=== PATIENT | female | born 1965 | race Caucasian/White ===

== ENCOUNTER 2017-08-03 11:48 | Emergency (ER) | payer OTHER ==
[~2017-08-03] VITALS: Ht 167.6 cm; Wt 72.7 kg
[2017-08-03 11:59] VITALS: BP 147/91
[2017-08-03 12:38] LABS: HEMATOCRIT 42.7 % (34.6-47.8); HEMOGLOBIN 14.4 g/dL (11.7-16.4); WHITE BLOOD COUNT 5.2 x10^3/uL (3.4-10)
[2017-08-03 12:51] LABS: BLOOD UREA NITROGEN 18 mg/dL (7-18)
== END 2017-08-03 14:37 | disposition home or self-care (01) ==
LOC: ED 14:31
DX: I87.2 Venous insufficiency (chronic) (peripheral) (principal); I10 Essential (primary) hypertension
CPT/HCPCS: 36415; 80048; 85025; 85610; 99285

== ENCOUNTER → 2018-07-01 | Outpatient (CLI) | payer OTHER | END | disposition home or self-care (01) | LOC: CFH 15:41 | PROVIDERS: ATTEND Nurse Practitioner | DX: E06.9 Thyroiditis, unspecified (principal); M25.511 Pain in right shoulder | CPT/HCPCS: 76536 ==

== ENCOUNTER 2019-03-07 09:43 | Inpatient (IN) | payer OTHER ==
[~2019-03-07] VITALS: Ht 165.1 cm; Wt 78.5 kg
[~2019-03-07 09:43] MED LIST: AMLO1CAP8 PO; AMOX1TAB64 PO
--- NOTE | 2019-03-07 10:17 | NUR ---
Assumed care of patient. C/O bilat lower ABD pain, worse on right, wrapping to lower back x 1 week. C/O occasional urinary incontinence and increased frequency. C/O N/V since yesterday. IV started, labs drawn, and UA sent to lab. at bedside. Placed on NIBP and pulse ox. Will continue to monitor.
[2019-03-07] MEDS ORDERED: ONDANSETRON 2MG/ML, 2ML ONE (10:24)
[2019-03-07] MEDS ORDERED: MORPHINE SULFATE 4 MG/ML, 1ML ONE (10:24)
[2019-03-07] MEDS ORDERED: ONDANSETRON 2MG/ML, 2ML IVPush ONE (10:30)
[2019-03-07] MEDS ORDERED: SODIUM CHLORIDE 0.9% 1,000ML IVBOLUS ONE (10:30)
[2019-03-07] MEDS ORDERED: MORPHINE SULFATE 4 MG/ML, 1ML IVPush PRN (10:30)
[2019-03-07] MEDS ORDERED: SODIUM CHLORIDE FLUSH 10ML SYR IVF ONE (10:30)
[2019-03-07 10:35] LABS: CULTURE INDICATED? YES; MICROSCOPIC INDICATED
[2019-03-07 11:02] LABS: BASOPHILS % (AUTO) 0 % (0-1); EOSINOPHILS # (AUTO) 0.03 x10^3/uL (0-0.4); EOSINOPHILS % (AUTO) 0 % (1-7); LYMPHOCYTES # (AUTO) 0.61 x10^3/uL (1-3.4); LYMPHOCYTES % (AUTO) 10 % (22-44); MD NO; MEAN CORPUSCULAR HEMOGLOBIN 29.8 pg (27.0-34.8); MEAN CORPUSCULAR HGB CONC 33.4 g/dL (32.4-35.8); MEAN CORPUSCULAR VOLUME 89.3 fL (80-100); MEAN PLATELET VOLUME 9.3 fL (7.4-10.4); MONOCYTES # (AUTO) 0.35 x10^3/uL (0.2-0.8); MONOCYTES % (AUTO) 5 % (2-9); NEUTROPHILS % (AUTO) 85 % (42-75); PLATELET COUNT 205 x10^3/uL (130-400); RED BLOOD COUNT 5.06 x10^6/uL (3.82-5.3); RED CELL DISTRIBUTION WIDTH 13.9 % (9.6-15.2)
[2019-03-07 11:11] LABS: ALBUMIN 4.1 g/dL (3.4-5.0); ANION GAP 8 mmol/L (5-15); CALCIUM 8.6 mg/dL (8.5-10.1); CHLORIDE 110 mmol/L (98-107)
--- NOTE | 2019-03-07 11:11 | NUR ---
Resting in [facility]. RR = 16.
[2019-03-07 11:14] LABS: ALANINE AMINOTRANSFERASE 24 U/L (12-78); ALKALINE PHOSPHATASE 50 U/L (45-117); BILIRUBIN,TOTAL 0.7 mg/dL (0.2-1.0); CREATININE 0.71 mg/dL (0.55-1.02); TOTAL PROTEIN 7.2 g/dL (6.4-8.2)
[2019-03-07] MEDS ORDERED: OMNIPAQUE 350 MG/ML, 100ML BOTTLE ONE (12:07)
--- NOTE | 2019-03-07 12:15 | NUR ---
Back from CT. No needs.
--- NOTE | 2019-03-07 13:38 | NUR ---
Provided with water for PO challenge.
--- NOTE | 2019-03-07 13:56 | NUR ---
Patient tolerating PO, but states that drinking water increases her ABD pain.
[2019-03-07] MEDS ORDERED: SODIUM CHLORIDE 0.9% 1,000 ML IV ONE (14:06)
[2019-03-07] MEDS ORDERED: SODIUM CHLORIDE FLUSH 10ML SYR IVF PRN (14:30)
--- NOTE | 2019-03-07 14:35 | NUR ---
Attempted report. RN unavailable.
--- NOTE | 2019-03-07 14:50 | NUR ---
Report to LEANDER Momin.
[2019-03-07] MEDS ORDERED: POLYETHYLENE GLYCOL 17 GM PACKET PO PRN (16:00)
[2019-03-07] MEDS ORDERED: ONDANSETRON 2MG/ML, 2ML IVPush PRN (16:00)
[2019-03-07] MEDS ORDERED: LABETALOL 5MG/ML, 20ML IVPush PRN (16:00)
[2019-03-07] MEDS ORDERED: ONDANSETRON ODT 4 MG PO PRN (16:00)
[2019-03-07 16:30] VITALS: BP 112/74
[2019-03-07 16:32] LABS: FREE T4 (FREE THYROXINE) 0.87 ng/dL (0.76-1.46)
[2019-03-07] MEDS: HEPARIN 5,000 UNITS/ML, 1ML SQ SCH (16:53)
[2019-03-07] MEDS ORDERED: MORPHINE SULFATE 4 MG/ML, 1ML IVPush ONE (17:00)
[2019-03-07] MEDS: SODIUM CHLORIDE 0.45% 1,000 ML IV SCH (17:23)
[2019-03-07] MEDS ORDERED: morphine SULFATE 10 MG/ML, 1ML IVPush PRN (19:30)
[2019-03-07] MEDS: CEFTRIAXONE PMX 1GM/50ML 50 ML IV SCH (19:42)
[2019-03-07 19:45] VITALS: BP 105/69
[2019-03-07] MEDS: METRONIDAZOLE PMX 500MG/100ML 100 ML IV SCH (20:55)
[2019-03-08 02:12] VITALS: BP 108/62
[2019-03-08] MEDS: SODIUM CHLORIDE 0.45% 1,000 ML IV SCH ×3 (02:36→21:13)
[2019-03-08 05:14] LABS: ALBUMIN 3.2 g/dL (3.4-5.0); ANION GAP 6 mmol/L (5-15); CALCIUM 7.8 mg/dL (8.5-10.1); CHLORIDE 114 mmol/L (98-107); MEAN CORPUSCULAR HEMOGLOBIN 30.7 pg (27.0-34.8); MEAN CORPUSCULAR HGB CONC 34.1 g/dL (32.4-35.8); MEAN PLATELET VOLUME 8.8 fL (7.4-10.4); PLATELET COUNT 152 x10^3/uL (130-400); RED BLOOD COUNT 4.14 x10^6/uL (3.82-5.3); RED CELL DISTRIBUTION WIDTH 14.3 % (9.6-15.2)
[2019-03-08] MEDS: METRONIDAZOLE PMX 500MG/100ML 100 ML IV SCH ×3 (05:17→21:13)
[2019-03-08 05:26] LABS: ALANINE AMINOTRANSFERASE 18 U/L (12-78); ALKALINE PHOSPHATASE 39 U/L (45-117); BILIRUBIN,TOTAL 0.6 mg/dL (0.2-1.0); CREATININE 0.48 mg/dL (0.55-1.02); TOTAL PROTEIN 5.6 g/dL (6.4-8.2)
[2019-03-08 05:54] LABS: BASOPHILS # (AUTO) 0.02 x10^3/uL (0-0.1); BASOPHILS % (AUTO) 1 % (0-1); EOSINOPHILS # (AUTO) 0.08 x10^3/uL (0-0.4); EOSINOPHILS % (AUTO) 3 % (1-7); LYMPHOCYTES # (AUTO) 0.95 x10^3/uL (1-3.4); LYMPHOCYTES % (AUTO) 34 % (22-44); MD SCAN; MONOCYTES # (AUTO) 0.31 x10^3/uL (0.2-0.8); MONOCYTES % (AUTO) 11 % (2-9); NEUTROPHILS # (AUTO) 1.41 x10^3/uL (1.8-6.8); NEUTROPHILS % (AUTO) 51 % (42-75)
[2019-03-08 07:05] VITALS: BP 102/68
[2019-03-08] MEDS: HEPARIN 5,000 UNITS/ML, 1ML SQ SCH ×3 (07:45→16:00)
[2019-03-08] MEDS: AMLODIPINE 5 MG TABLET PO SCH (07:50)
[2019-03-08] MEDS: SENNA/DOCUSATE TABLET PO SCH (07:50)
[2019-03-08] MEDS: BENAZEPRIL 10 MG TABLET PO SCH (07:50)
[2019-03-08 14:05] VITALS: BP 113/78
[2019-03-08 20:00] VITALS: BP 109/63
[2019-03-08] MEDS: CEFTRIAXONE PMX 1GM/50ML 50 ML IV SCH (20:00)
[2019-03-09 02:00] VITALS: BP 93/58
[2019-03-09] MEDS: METRONIDAZOLE PMX 500MG/100ML 100 ML IV SCH ×2 (04:56→13:00)
[2019-03-09 05:02] LABS: ALANINE AMINOTRANSFERASE 20 U/L (12-78); ALBUMIN 3.3 g/dL (3.4-5.0); ANION GAP 6 mmol/L (5-15); CALCIUM 8.1 mg/dL (8.5-10.1); CHLORIDE 113 mmol/L (98-107)
[2019-03-09 05:05] LABS: ALKALINE PHOSPHATASE 37 U/L (45-117); BILIRUBIN,TOTAL 0.2 mg/dL (0.2-1.0); CREATININE 0.54 mg/dL (0.55-1.02); TOTAL PROTEIN 5.7 g/dL (6.4-8.2)
[2019-03-09 05:12] LABS: BASOPHILS # (AUTO) 0.01 x10^3/uL (0-0.1); BASOPHILS % (AUTO) 0 % (0-1); EOSINOPHILS # (AUTO) 0.13 x10^3/uL (0-0.4); EOSINOPHILS % (AUTO) 4 % (1-7); LYMPHOCYTES # (AUTO) 1.02 x10^3/uL (1-3.4); LYMPHOCYTES % (AUTO) 27 % (22-44); MD NO; MEAN CORPUSCULAR HGB CONC 33.4 g/dL (32.4-35.8); MEAN CORPUSCULAR VOLUME 89.8 fL (80-100); MEAN PLATELET VOLUME 8.7 fL (7.4-10.4); MONOCYTES # (AUTO) 0.38 x10^3/uL (0.2-0.8); MONOCYTES % (AUTO) 10 % (2-9); NEUTROPHILS # (AUTO) 2.24 x10^3/uL (1.8-6.8); NEUTROPHILS % (AUTO) 59 % (42-75); PLATELET COUNT 165 x10^3/uL (130-400); RED BLOOD COUNT 4.24 x10^6/uL (3.82-5.3); RED CELL DISTRIBUTION WIDTH 14.4 % (9.6-15.2)
[2019-03-09] MEDS: SODIUM CHLORIDE 0.45% 1,000 ML IV SCH ×2 (07:00→15:00)
[2019-03-09] MEDS: BENAZEPRIL 10 MG TABLET PO SCH (07:52)
[2019-03-09] MEDS: AMLODIPINE 5 MG TABLET PO SCH (07:52)
[2019-03-09] MEDS: HEPARIN 5,000 UNITS/ML, 1ML SQ SCH ×2 (07:53)
[2019-03-09 07:56] VITALS: BP 104/69
[2019-03-09] MEDS: SENNA/DOCUSATE TABLET PO SCH (09:00)
[2019-03-09] MEDS ORDERED: CIPR500T87 PO (12:44)
[2019-03-09] MEDS ORDERED: METR500T PO (12:44)
[2019-03-09] MEDS ORDERED: ONDA4TAB7 PO (12:45)
[2019-03-09] MEDS: CEFTRIAXONE PMX 1GM/50ML 50 ML IV SCH (14:08)
[2019-03-09 14:45] VITALS: BP 107/71
== END 2019-03-09 15:39 | disposition home or self-care (01) | DRG 394 ==
LOC: ED 11:22 → EDIP 14:06 → 3NE 15:29 → DCLOUNGE 03-09 15:20
PROVIDERS: ADMIT Hospitalist; ATTEND Hospitalist
DX: K65.4 Sclerosing mesenteritis (principal); J98.11 Atelectasis; N30.01 Acute cystitis with hematuria; D25.9 Leiomyoma of uterus, unspecified; I10 Essential (primary) hypertension; K52.9 Noninfective gastroenteritis and colitis, unspecified; M79.3 Panniculitis, unspecified; N83.202 Unspecified ovarian cyst, left side; Z82.3 Family history of stroke; Z90.49 Acquired absence of other specified parts of digestive tract
CPT/HCPCS: 36415; 74177; 76770; 80053; 81001; 83605; 83735; 84100; 84145; 84439; 84443; 85025; 87040; 87086; 96361; 96374; 96375; 99285; G0378; J0696; J1644; J2405; Q9967; J7030

== ENCOUNTER 2019-03-19 02:59 | Inpatient (IN) | payer OTHER ==
[~2019-03-19] VITALS: Ht 165.1 cm; Wt 75.0 kg
[~2019-03-19 02:59] MED LIST changes: +CIPR500T87 PO; +METR500T PO; +ONDA4TAB7 PO
--- NOTE | 2019-03-19 03:10 | NUR ---
ASSESSMENT MADE. CHART UP FOR MD TO SEE.
--- NOTE | 2019-03-19 03:56 | NUR ---
MRI SCREENING FORM COMPLETED AND FAXED TO RADIOLOGY
[2019-03-19] MEDS ORDERED: HYDROmorphone 2 MG/ML, 1ML ONE ×3 (03:59→04:54)
[2019-03-19] MEDS ORDERED: DIAZEPAM 5 MG/ML, 10ML VIAL IV ONE (04:00)
[2019-03-19] MEDS ORDERED: HYDROmorphone 1 MG/ML, 1ML INJ IV ONE ×4 (04:00→05:00)
[2019-03-19 04:06] LABS: BASOPHILS # (AUTO) 0.03 x10^3/uL (0-0.1); BASOPHILS % (AUTO) 1 % (0-1); EOSINOPHILS # (AUTO) 0.12 x10^3/uL (0-0.4); EOSINOPHILS % (AUTO) 2 % (1-7); HCT (SEDRATE) 40.7 % (34.6-47.8); LYMPHOCYTES # (AUTO) 1.12 x10^3/uL (1-3.4); LYMPHOCYTES % (AUTO) 21 % (22-44); MD NO; MEAN CORPUSCULAR HEMOGLOBIN 30.5 pg (27.0-34.8); MEAN CORPUSCULAR HGB CONC 33.7 g/dL (32.4-35.8); MEAN CORPUSCULAR VOLUME 90.5 fL (80-100); MEAN PLATELET VOLUME 8.4 fL (7.4-10.4); MONOCYTES # (AUTO) 0.29 x10^3/uL (0.2-0.8); MONOCYTES % (AUTO) 5 % (2-9); NEUTROPHILS # (AUTO) 3.71 x10^3/uL (1.8-6.8); NEUTROPHILS % (AUTO) 71 % (42-75); PLATELET COUNT 258 x10^3/uL (130-400); RED BLOOD COUNT 4.47 x10^6/uL (3.82-5.3); RED CELL DISTRIBUTION WIDTH 14.3 % (9.6-15.2)
--- NOTE | 2019-03-19 04:06 | NUR ---
PT MEDICATED PER RE FOR VALIUM TUBED TO PHARM
[2019-03-19 04:11] LABS: ANION GAP 6 mmol/L (5-15); CALCIUM 8.6 mg/dL (8.5-10.1); CHLORIDE 109 mmol/L (98-107); CREATININE 0.64 mg/dL (0.55-1.02)
[2019-03-19] MEDS ORDERED: NALOXONE 0.4 MG/ML, 1ML ONE (04:55)
[2019-03-19] MEDS ORDERED: KETAMINE 10 MG/ML, 20ML ONE (05:17)
[2019-03-19] MEDS ORDERED: KETAMINE 100 MG/ML, 5ML IV ONE (05:30)
--- NOTE | 2019-03-19 05:43 | NUR ---
MRI CALLED STATING PT UNABLE TO LAY IN AN ADEQUATE POSITION FOR MRI. CONSULTED. THIS RN TO MRI TO MEDICATE PT. PT WAS MEDICATED 3X 0.5MG DILAUDID WITHOUT SUFFICIENT PAIN RELIEF. CONSULTED AGAIN. REQUESTS CONSCIOUS SEDATION IN MRI. CONSENT SIGNED BY ALL PARTIES. AND THIS RN NOW IN MRI FOR SEDATION. ALL SAFETY MEASURES IN PLACE. PT ON ALL MONITORING.
--- NOTE | 2019-03-19 06:06 | NUR ---
RETURNED FROM MRI AT THIS TIME. PT TOLERATED PROCEDURE WELL. REFER TO PAPER CHARTING.
[2019-03-19] MEDS ORDERED: NALOXONE 0.4 MG/ML, 1ML IVPush ONE (06:30)
--- NOTE | 2019-03-19 06:46 | NUR ---
PT NOW AWAKE AND CONVERSING. PT STATES STILL IN PAIN. PT READY FOR TRANSPORT.
[2019-03-19] MEDS ORDERED: ONDANSETRON 2MG/ML, 2ML IVPush PRN (07:30)
[2019-03-19 08:02] VITALS: BP 117/81
[2019-03-19] MEDS: SODIUM CHLORIDE 0.9% 1,000 ML IV SCH ×2 (08:17→23:02)
[2019-03-19] MEDS: ONDANSETRON ODT 4 MG PO PRN ×2 (08:19→12:57)
[2019-03-19 08:28] LABS: INTERNATIONAL NORMALIZED RATIO 1.15 (0.93-1.1)
[2019-03-19] MEDS: GABAPENTIN 300 MG CAPSULE PO SCH ×2 (08:39→20:51)
[2019-03-19] MEDS: HEPARIN 5,000 UNITS/ML, 1ML SQ SCH ×2 (08:39→18:57)
[2019-03-19] MEDS: ACETAMINOPHEN 325 MG TABLET PO SCH ×3 (08:39→20:52)
[2019-03-19] MEDS: DEXAMETHASONE 4 MG/ML, 1ML IV SCH ×3 (08:39→23:02)
[2019-03-19] MEDS: morphine SULFATE 10 MG/ML, 1ML IVPush PRN ×2 (10:29→19:10)
[2019-03-19] MEDS: KETOROLAC 30 MG/1 ML IVPush SCH ×3 (12:36→23:02)
[2019-03-19 13:04] VITALS: BP 114/72
[2019-03-19] MEDS: CARVEDILOL 3.125 MG TABLET PO SCH (17:52)
[2019-03-19 18:56] VITALS: BP 134/85
[2019-03-20 01:58] VITALS: BP 112/70
[2019-03-20] MEDS: ACETAMINOPHEN 325 MG TABLET PO SCH ×3 (02:52→17:39)
[2019-03-20] MEDS: morphine SULFATE 10 MG/ML, 1ML IVPush PRN (04:26)
[2019-03-20 04:34] LABS: MEAN CORPUSCULAR HEMOGLOBIN 29.7 pg (27.0-34.8); MEAN CORPUSCULAR HGB CONC 33.2 g/dL (32.4-35.8); MEAN CORPUSCULAR VOLUME 89.5 fL (80-100); MEAN PLATELET VOLUME 8.7 fL (7.4-10.4); PLATELET COUNT 260 x10^3/uL (130-400); RED BLOOD COUNT 4.38 x10^6/uL (3.82-5.3)
[2019-03-20 04:40] LABS: ANION GAP 5 mmol/L (5-15); CALCIUM 8.7 mg/dL (8.5-10.1); CHLORIDE 108 mmol/L (98-107); CREATININE 0.64 mg/dL (0.55-1.02)
[2019-03-20 04:52] LABS: THYROID STIMULATING HORMONE 0.555 mIU/L (0.358-3.740)
[2019-03-20 04:53] LABS: BASOPHILS % (AUTO) 0 % (0-1); EOSINOPHILS % (AUTO) 0 % (1-7); LYMPHOCYTES # (AUTO) 0.49 x10^3/uL (1-3.4); LYMPHOCYTES % (AUTO) 5 % (22-44); MD SCAN; MONOCYTES % (AUTO) 1 % (2-9); NEUTROPHILS # (AUTO) 9.17 x10^3/uL (1.8-6.8); NEUTROPHILS % (AUTO) 94 % (42-75)
[2019-03-20] MEDS: KETOROLAC 30 MG/1 ML IVPush SCH ×3 (05:39→17:42)
[2019-03-20] MEDS: CARVEDILOL 3.125 MG TABLET PO SCH ×2 (05:40→17:40)
[2019-03-20 06:26] VITALS: BP 121/77
[2019-03-20] MEDS ORDERED: BUPIVACAINE/EPI 0.5% 1:200K ONE (07:09)
[2019-03-20] MEDS ORDERED: BUPIVACAINE/PF 0.5% ONE (07:09)
[2019-03-20] MEDS ORDERED: THROMBIN 20,000 UNIT VIAL TP ONE (07:09)
[2019-03-20] MEDS ORDERED: BACITRACIN 50,000 UNIT ONE (07:10)
[2019-03-20] MEDS ORDERED: VANCOMYCIN 1,000 MG ONE (07:10)
[2019-03-20] MEDS ORDERED: FENTANYL PF 250 MCG/5ML ONE (07:25)
[2019-03-20] MEDS ORDERED: SUCCINYLCHOLINE 20 MG/ML, 10ML ONE (07:31)
[2019-03-20] MEDS ORDERED: METOCLOPRAMIDE 5 MG/ML, 2ML ONE (07:31)
[2019-03-20] MEDS ORDERED: LIDOCAINE 2% 100MG/5ML SYRINGE ONE (07:31)
[2019-03-20] MEDS ORDERED: ROCURONIUM 10MG/ML,5ML ONE (07:31)
[2019-03-20] MEDS ORDERED: VANCOMYCIN 500 MG ONE (08:26)
[2019-03-20] MEDS ORDERED: ONDANSETRON 2MG/ML, 2ML IV PRN (08:30)
[2019-03-20] MEDS ORDERED: ALBUTEROL/IPRATROPIUM 2.5MG/0.5MG, 3 ML NPPB PRN (08:30)
[2019-03-20] MEDS ORDERED: KETOROLAC 30 MG/1 ML IV ONE (08:30)
[2019-03-20] MEDS ORDERED: SCOPOLAMINE PATCH, 1.5MG PATCH.TD72 TD PRN (08:30)
[2019-03-20] MEDS ORDERED: OXYcodone 5 MG/5 ML ORAL.SOL UDC PO PRN (08:30)
[2019-03-20] MEDS ORDERED: FENTANYL PF 100 MCG/2ML IV PRN (08:30)
[2019-03-20] MEDS ORDERED: HYDROmorphone 2 MG/ML, 1ML IVPush PRN (08:30)
[2019-03-20] MEDS ORDERED: hydrALAzine 20 MG/ML, 1ML IV PRN (08:30)
[2019-03-20] MEDS ORDERED: MIDAZOLAM 1 MG/ML, 5ML IV PRN (08:30)
[2019-03-20] MEDS ORDERED: EPHEDRINE 50 MG/ML, 1ML IM PRN (08:30)
[2019-03-20] MEDS ORDERED: LABETALOL 5 MG/ML SYRINGE IV PRN (08:30)
[2019-03-20] MEDS ORDERED: PROMETHAZINE 25 MG/ML, 1ML IV PRN (08:30)
[2019-03-20] MEDS ORDERED: MEPERIDINE/PF 25MG/0.5ML IVPush PRN (08:30)
[2019-03-20] MEDS ORDERED: DEXAMETHASONE 4 MG/ML, 1ML ONE (08:38)
[2019-03-20] MEDS ORDERED: ONDANSETRON 2MG/ML, 2ML ONE (08:38)
[2019-03-20] MEDS ORDERED: PROPOFOL 10 MG/ML, 20ML ONE (08:38)
[2019-03-20] MEDS ORDERED: CEFAZOLIN 1,000 MG ONE (08:38)
[2019-03-20 10:10] VITALS: BP 105/65
[2019-03-20] MEDS ORDERED: BISACODYL 10 MG SUPP PR PRN (11:00)
[2019-03-20] MEDS ORDERED: MAGNESIUM HYDROXIDE 8%, 30ML UDC PO PRN (11:00)
[2019-03-20] MEDS ORDERED: DIPHENHYDRAMINE 50 MG CAPSULE PO PRN (11:00)
[2019-03-20] MEDS: D5%-0.9% NACL+KCL 20MEQ 1,000 ML IV SCH (11:28)
[2019-03-20] MEDS ORDERED: DEXAMETHASONE 4 MG/ML, 1ML IV SCH (11:30)
[2019-03-20] MEDS: GABAPENTIN 300 MG CAPSULE PO SCH ×2 (11:32→21:02)
[2019-03-20] MEDS ORDERED: METHOCARBAMOL 750 MG TABLET PO PRN (12:30)
[2019-03-20 13:37] VITALS: BP 95/43
[2019-03-20] MEDS: CEFAZOLIN PMX 1GM/50ML 50 ML IVPB SCH (15:43)
[2019-03-20] MEDS: SODIUM CHLORIDE 0.9% 1,000 ML IV SCH (16:21)
[2019-03-20 20:47] VITALS: BP 113/64
[2019-03-21] MEDS: D5%-0.9% NACL+KCL 20MEQ 1,000 ML IV SCH (00:09)
[2019-03-21] MEDS: CEFAZOLIN PMX 1GM/50ML 50 ML IVPB SCH (00:09)
[2019-03-21] MEDS: KETOROLAC 30 MG/1 ML IVPush SCH ×3 (00:16→11:51)
[2019-03-21] MEDS: ACETAMINOPHEN 325 MG TABLET PO SCH ×3 (00:16→11:30)
[2019-03-21 00:50] VITALS: BP 105/54
[2019-03-21 04:15] VITALS: BP 114/74
[2019-03-21 04:56] LABS: BASOPHILS # (AUTO) 0.06 x10^3/uL (0-0.1); BASOPHILS % (AUTO) 1 % (0-1); EOSINOPHILS % (AUTO) 0 % (1-7); LYMPHOCYTES # (AUTO) 1.14 x10^3/uL (1-3.4); LYMPHOCYTES % (AUTO) 10 % (22-44); MD NO; MEAN CORPUSCULAR HGB CONC 32.9 g/dL (32.4-35.8); MEAN PLATELET VOLUME 8.7 fL (7.4-10.4); MONOCYTES % (AUTO) 5 % (2-9); NEUTROPHILS # (AUTO) 10.04 x10^3/uL (1.8-6.8); NEUTROPHILS % (AUTO) 85 % (42-75); PLATELET COUNT 206 x10^3/uL (130-400); RED BLOOD COUNT 3.88 x10^6/uL (3.82-5.3); RED CELL DISTRIBUTION WIDTH 14.7 % (9.6-15.2)
[2019-03-21 05:02] LABS: CHLORIDE 113 mmol/L (98-107)
[2019-03-21 05:07] LABS: ANION GAP 6 mmol/L (5-15); CREATININE 0.62 mg/dL (0.55-1.02)
[2019-03-21] MEDS: CARVEDILOL 3.125 MG TABLET PO SCH (05:51)
[2019-03-21] MEDS ORDERED: ENOXAPARIN 40 MG/0.4 ML SQ SCH (06:00)
[2019-03-21 08:01] VITALS: BP 112/65
[2019-03-21] MEDS ORDERED: HYDROcodone/APAP 10/325 MG TABLET PO PRN (08:30)
[2019-03-21] MEDS ORDERED: SENNA/DOCUSATE TABLET PO SCH (09:00)
[2019-03-21] MEDS ORDERED: AMLODIPINE 5 MG TABLET PO SCH (09:00)
[2019-03-21] MEDS ORDERED: BENAZEPRIL 10 MG TABLET PO SCH (09:00)
[2019-03-21] MEDS: GABAPENTIN 300 MG CAPSULE PO SCH (09:24)
[2019-03-21] MEDS: SODIUM CHLORIDE 0.9% 1,000 ML IV SCH (09:26)
[2019-03-21] MEDS ORDERED: METH750T2 PO (09:34)
[2019-03-21] MEDS ORDERED: ACET325T14 PO (09:34)
[2019-03-21] MEDS ORDERED: GABA300C10 PO (09:34)
[2019-03-21] MEDS ORDERED: CARV3.1212 PO (09:34)
[2019-03-21] MEDS ORDERED: HYDR-3307 PO (09:34)
[2019-03-21] MEDS ORDERED: SENN-177 PO (09:34)
[2019-03-21 13:32] VITALS: BP 133/74
== END 2019-03-21 14:21 | disposition home or self-care (01) | DRG 519 ==
LOC: ED 03:45 → EDIP 06:12 → 3NW 07:20 → 4NOR 03-20 10:08 → DCLOUNGE 03-21 14:15
PROVIDERS: ADMIT Internal Medicine; ATTEND Internal Medicine
PROC: 01NB0ZZ Release Lumbar Nerve, Open Approach (ICD-10-PCS; 2019-03-20)
PROC: 0SB20ZZ Excision of Lumbar Vertebral Disc, Open Approach (ICD-10-PCS; principal; 2019-03-20 07:30)
DX: M51.16 Intervertebral disc disorders with radiculopathy, lumbar region (principal); E87.1 Hypo-osmolality and hyponatremia; M19.90 Unspecified osteoarthritis, unspecified site; I10 Essential (primary) hypertension; F12.90 Cannabis use, unspecified, uncomplicated; N81.10 Cystocele, unspecified; M25.551 Pain in right hip; E06.3 Autoimmune thyroiditis; G47.30 Sleep apnea, unspecified; Z90.49 Acquired absence of other specified parts of digestive tract; Z82.0 Family history of epilepsy and other diseases of the nervous system; Z82.3 Family history of stroke; Z88.8 Allergy status to other drugs, medicaments and biological substances; Z79.899 Other long term (current) drug therapy
CPT/HCPCS: 36415; 72100; 72148; 80048; 84439; 84443; 85025; 85610; 85651; C1729; G0378; J0690; J1100; J1170; J1644; J1650; J1885; J2310; J2405; J2704; J3010; J3360; J3370; J3490; Q0162; J0330; J2270; J2765; J3480; J7030

== ENCOUNTER → 2019-04-20 | Outpatient (CLI) | payer OTHER ==
[~2019-04-20] MED LIST changes: +ACET325T14 PO; +CARV3.1212 PO; +GABA300C10 PO; +HYDR-3307 PO; +METH750T2 PO; +OMNIPAQUE 350 MG/ML, 100ML BOTTLE ONE; +SENN-177 PO
== END | disposition home or self-care (01) ==
LOC: CFH 12:55
PROVIDERS: ATTEND Nurse Practitioner Family
DX: D25.9 Leiomyoma of uterus, unspecified (principal); M47.816 Spondylosis without myelopathy or radiculopathy, lumbar region; I88.0 Nonspecific mesenteric lymphadenitis; Z90.49 Acquired absence of other specified parts of digestive tract
CPT/HCPCS: 74177; Q9967